=== PATIENT | female | born 1980 | race Caucasian/White ===

== ENCOUNTER 2020-02-18 20:25 | Emergency (ER) | payer SELFPAY ==
[~2020-02-18] VITALS: Ht 157.5 cm; Wt 64.0 kg
[2020-02-18] MEDS ORDERED: IBUPROFEN 600MG TABLET PO ONE (22:45)
[2020-02-19 00:13] VITALS: BP 119/84
== END 2020-02-19 00:14 | disposition home or self-care (01) ==
LOC: ER 20:25
DX: S33.5XXA Sprain of ligaments of lumbar spine, initial encounter (principal); Z98.890 Other specified postprocedural states; W18.39XA Other fall on same level, initial encounter; Y93.89 Activity, other specified; Y92.89 Other specified places as the place of occurrence of the external cause; Y99.8 Other external cause status
CPT/HCPCS: 72100; 81025; 99283